=== PATIENT | female | born 1960 | race Asian ===

== ENCOUNTER 2022-02-15 18:50 | Emergency (ER) | payer SELFPAY ==
[~2022-02-15] VITALS: Ht 162.6 cm; Wt 63.2 kg
[2022-02-15 19:11] VITALS: BP 142/81; TEMP 98
[2022-02-15] MEDS ORDERED: NAPROSYN500 MG PO (20:26)
[2022-02-15 20:37] VITALS: PULSE 76
== END 2022-02-15 20:38 | disposition home or self-care (01) ==
LOC: COL.ER 18:50
DX: S80.211A Abrasion, right knee, initial encounter (principal); S80.212A Abrasion, left knee, initial encounter; W01.0XXA Fall on same level from slipping, tripping and stumbling without subsequent striking against object, initial encounter; Y93.01 Activity, walking, marching and hiking